=== PATIENT | female | born 1980 | race Caucasian/White ===

== ENCOUNTER 2017-11-02 04:06 | Emergency (ER) | payer MEDICAID ==
[~2017-11-02] VITALS: Ht 154.9 cm; Wt 87.8 kg
[2017-11-02 04:39] VITALS: BP 138/90
== END 2017-11-02 04:40 | disposition home or self-care (01) ==
LOC: ER 04:07
DX: F15.10 Other stimulant abuse, uncomplicated (principal); F12.10 Cannabis abuse, uncomplicated; F10.10 Alcohol abuse, uncomplicated; Z59.0 Homelessness; Y90.9 Presence of alcohol in blood, level not specified
CPT/HCPCS: 99281